=== PATIENT | male | born 1985 | race Caucasian/White ===

== ENCOUNTER 2018-09-20 12:25 | Emergency (ER) | payer MEDICAID ==
[~2018-09-20] VITALS: Ht 167.6 cm; Wt 64.0 kg
[2018-09-20 12:28] VITALS: BP 142/79
[2018-09-20] MEDS ORDERED: LIDOCAINE HCL/PF 1% 2ML VIAL INFIL ONE (13:15)
[2018-09-20] MEDS ORDERED: IBUPROFEN 600MG TABLET PO ONE (13:15)
[2018-09-20] MEDS ORDERED: LIDOCAINE HCL/PF 1% 10 MG/ML 5ML VIAL ONE (13:41)
== END 2018-09-20 15:31 | disposition home or self-care (01) ==
LOC: ER 12:25
DX: S61.411A Laceration without foreign body of right hand, initial encounter (principal); W01.0XXA Fall on same level from slipping, tripping and stumbling without subsequent striking against object, initial encounter; Y93.01 Activity, walking, marching and hiking; Y92.098 Other place in other non-institutional residence as the place of occurrence of the external cause; Y99.8 Other external cause status
CPT/HCPCS: 12002; 73120; 99283; J3490

== ENCOUNTER 2018-09-22 09:50 | Emergency (ER) | payer MEDICAID ==
[~2018-09-22] VITALS: Ht 165.1 cm; Wt 64.0 kg
[2018-09-22 09:53] VITALS: BP 125/67
== END 2018-09-22 11:08 | disposition home or self-care (01) ==
LOC: ER 10:23
DX: Z48.00 Encounter for change or removal of nonsurgical wound dressing (principal)
CPT/HCPCS: 99281

== ENCOUNTER 2018-09-27 09:46 | Emergency (ER) | payer MEDICAID ==
[~2018-09-27] VITALS: Ht 167.6 cm; Wt 64.0 kg
[2018-09-27 11:00] VITALS: BP 118/75
== END 2018-09-27 11:02 | disposition home or self-care (01) ==
LOC: ER 10:16
DX: S61.411D Laceration without foreign body of right hand, subsequent encounter (principal); X58.XXXD Exposure to other specified factors, subsequent encounter
CPT/HCPCS: 99281

== ENCOUNTER 2020-07-01 15:22 | Emergency (ER) | payer SELFPAY ==
[~2020-07-01] VITALS: Ht 167.6 cm; Wt 64.0 kg
[2020-07-01 15:24] VITALS: BP 131/99
[2020-07-01] MEDS ORDERED: FAMOTIDINE 20MG TABLET PO ONE (16:45)
[2020-07-01 17:24] LABS: BASOPHILS % 0.3 % (0.0-2.0); EOSINOPHILS % 0.8 % (0.0-5.0); HEMATOCRIT. 41.1 % (42.0-52.0); HEMOGLOBIN. 14.1 g/dL (14.0-18.0); LYMPHOCYTES % 18.2 % (20.0-50.0); MEAN CORPUSCULAR HEMOGLOBIN 30.7 pg (28.0-32.0); MEAN CORPUSCULAR VOLUME 89.6 fL (80.0-94.0); MEAN PLATELET VOLUME 10.5 fl (7.4-10.4); MONOCYTES % 9.8 % (2.0-8.0); NEUTROPHILS % 70.9 % (40.0-76.0); PLATELET 186 x1000/uL (130-400); RED BLOOD CELL COUNT 4.59 mill/uL (4.7-6.1); RED CELL DISTRIBUTION WIDTH 13.5 % (11.6-14.6)
[2020-07-01 17:26] LABS: CHLORIDE 105 mEq/L (98-107)
== END 2020-07-01 17:45 | disposition home or self-care (01) ==
LOC: ER 15:22
DX: R10.84 Generalized abdominal pain (principal); R11.2 Nausea with vomiting, unspecified
CPT/HCPCS: 36415; 71045; 80053; 85025; 93005; 99285

== ENCOUNTER 2020-07-03 00:15 | Emergency (ER) | payer SELFPAY ==
[~2020-07-03] VITALS: Ht 167.6 cm; Wt 64.0 kg
[2020-07-03] MEDS ORDERED: ASPIRIN 81MG TABLET PO ONE (00:45)
[2020-07-03] MEDS ORDERED: NITROGLYCERIN 0.4MG TABLET SL SL PRN (00:45)
[2020-07-03 01:02] LABS: CHLORIDE 106 mEq/L (98-107)
[2020-07-03 01:08] LABS: BASOPHILS % 0.5 % (0.0-2.0); EOSINOPHILS % 3.3 % (0.0-5.0); HEMATOCRIT. 39.8 % (42.0-52.0); HEMOGLOBIN. 13.6 g/dL (14.0-18.0); LYMPHOCYTES % 30.8 % (20.0-50.0); MEAN CORPUSCULAR HEMOGLOBIN 30.7 pg (28.0-32.0); MEAN CORPUSCULAR VOLUME 89.7 fL (80.0-94.0); MEAN PLATELET VOLUME 10.2 fl (7.4-10.4); MONOCYTES % 8.8 % (2.0-8.0); NEUTROPHILS % 56.6 % (40.0-76.0); PLATELET 184 x1000/uL (130-400); RED BLOOD CELL COUNT 4.44 mill/uL (4.7-6.1); RED CELL DISTRIBUTION WIDTH 13.4 % (11.6-14.6)
[2020-07-03] MEDS ORDERED: MAGNESIUM/ALUMINUM HYDROXIDE/SIMETHICONE 30ML UDC PO SCH (02:30)
[2020-07-03 03:41] VITALS: BP 108/69
== END 2020-07-03 03:43 | disposition home or self-care (01) ==
LOC: ER 00:15
DX: R07.89 Other chest pain (principal); R03.0 Elevated blood-pressure reading, without diagnosis of hypertension
CPT/HCPCS: 36415; 71045; 80053; 83690; 83880; 84484; 85025; 93005; 99285; Z7610